=== PATIENT | female | born 1955 | race Caucasian/White ===

== ENCOUNTER 2020-07-08 21:58 | Emergency (ER) | payer OTHER, SELFPAY ==
[~2020-07-08] VITALS: Ht 157.5 cm; Wt 81.6 kg
[~2020-07-08 21:58] MED LIST: GABA400C PO; GLIP5TER PO; LEVO500T98 PO; LISI5TAB18 PO; ONDA4TAB PO; POLY17PD46 PO; PRE.3 PO; SIMV80TA1 PO; TIZA2CAP PO; TRAZ100T77 PO; [UNRECOGNIZED DRUG - CODE] SL
[2020-07-08 22:01] VITALS: BP 116/66
--- NOTE | 2020-07-08 22:02 | NUR ---
BIBA TO ER BED 5
--- NOTE | 2020-07-08 22:24 | NUR ---
65/F BIB SELF COMPLAINING OF SHARP CHEST PAIN 6/10 S/P INGESTION OF RED MEAT AT APPROX 1630/1700. PT SELF MEDICATED WITH DILAUDID AND TYLENOL #3. PT DENIES ANY N/V/D. PT AAOX4, AMBULATORY, ABLE TO MAKE NEEDS KNOWN. PT CHANGED TO GOWN, HOOKED TO MONITORS. SAFETY MEASURES IN PLACE, WILL CONTINUE TO MONITOR. PMH: COPD, HTN, HLYD, DM, GALLGLADDER REMOVAL 06/28 ALLERGY: SHRIMP, PCN, TRAMDOL
[2020-07-08 22:28] VITALS: BP 125/60
--- NOTE | 2020-07-08 23:04 | NUR ---
MOVED TO ER BED 4
[2020-07-09] MEDS ORDERED: MORPHINE SULFATE 2 MG/ML SYR IVP ONE (00:05)
[2020-07-09] MEDS ORDERED: ONDANSETRON 4 MG/2 ML VIAL IVP ONE (00:05)
[2020-07-09] MEDS ORDERED: ASPIRIN 325 MG TAB PO ONE (00:05)
[2020-07-09 00:26] LABS: BASOPHILS # (AUTO) 0.1 K/uL (0.00-0.22); BASOPHILS % (AUTO) 0.6 % (0.0-2.0); EOSINOPHILS # (AUTO) 0.1 K/uL (0-0.4); EOSINOPHILS % (AUTO) 1.1 % (0.0-4.0); HEMOGLOBIN 11.8 g/dL (12.0-16.0); LYMPHOCYTES # (AUTO) 2.2 K/uL (2.5-16.5); MEAN CORPUSCULAR HEMOGLOBIN 32 pg (27-31); MEAN CORPUSCULAR HGB CONC 34 g/dL (33-37); MEAN CORPUSCULAR VOLUME 95.5 fL (80-94); MONOCYTES % (AUTO) 7.8 % (1.7-9.3); NEUTROPHILS # (AUTO) 9.3 K/uL (1.8-7.7); NEUTROPHILS % (AUTO) 73.5 % (42.2-75.2); PLATELET COUNT (AUTO) 463 K/uL (140-450); RED BLOOD CELL COUNT(AUTO) 3.66 MIL/uL (4.20-5.40); RED CELL DISTRIBUTION WIDTH 13.2 % (11.6-13.7); WHITE BLOOD COUNT (AUTO) 12.7 K/uL (4.8-10.8)
--- NOTE | 2020-07-09 00:30 | NUR ---
ATTEMPTED X3 FOR IV ACCESS, UNABLE TO OBTAIN IV ACCESS DUE TO POOR DIDIER CIRCULATION. ERMD MADE AWARE.
[2020-07-09] MEDS ORDERED: HYDROcodone/APAP 5/325 MG 1 TAB TAB PO ONE (00:35)
[2020-07-09 00:40] LABS: ALBUMIN 3.2 g/dL (3.4-5.0); CARBON DIOXIDE 29.2 mmol/L (21-32); POTASSIUM 4.2 mmol/L (3.5-5.1); TOTAL BILIRUBIN 0.8 mg/dL (0.0-1.0)
--- NOTE | 2020-07-09 02:00 | NUR ---
S/W PT ABOUT PLAN OF CARE. PT AGREEABLE TO EKG ONLY AND WANTS TO BE DISCHARGED AFTERWARDS. TOMD MADE AWARE.
--- NOTE | 2020-07-09 02:13 | NUR ---
Patient discharged with v/s stable. Written and verbal after care instructions given and explained. Patient verbalized understanding. Ambulatory with steady gait. All questions addressed prior to discharge. Advised to follow up with PMD.
== END 2020-07-09 02:13 | disposition home or self-care (01) ==
LOC: MED 21:58
DX: R07.89 Other chest pain (principal); R06.02 Shortness of breath; R05 Cough; E11.9 Type 2 diabetes mellitus without complications; I10 Essential (primary) hypertension; J45.909 Unspecified asthma, uncomplicated; Z88.0 Allergy status to penicillin; Z88.5 Allergy status to narcotic agent; Z79.899 Other long term (current) drug therapy; Z85.43 Personal history of malignant neoplasm of ovary; Z79.84 Long term (current) use of oral hypoglycemic drugs
CPT/HCPCS: 36415; 71045; 80053; 84484; 85025; 93005; 99285; J2270; J2405

== ENCOUNTER 2022-09-01 15:21 | Emergency (ER) | payer OTHER ==
[~2022-09-01] VITALS: Ht 162.6 cm; Wt 81.6 kg
[~2022-09-01 15:21] MED LIST changes: +LEVO-481 PO; -LEVO500T98 PO; -TRAZ100T77 PO; +[UNRECOGNIZED DRUG - CODE] PO
[2022-09-01 16:04] VITALS: BP 117/79; PULSE 76; RESP 18; TEMP 98.1; O2SAT 98
[2022-09-01] MEDS ORDERED: KETOROLAC 30 MG/ML VIAL IM ONE (17:20)
[2022-09-01] MEDS ORDERED: NAPR-54 PO (17:28)
--- NOTE | 2022-09-01 17:38 | NUR ---
Patient discharged with v/s stable. Written and verbal after care instructions given and explained. Patient alert, oriented and verbalized understanding of instructions. Wheel Chair Assisted with to home. All questions addressed prior to discharge. ID band removed. Patient advised to follow up with PMD. Rx of NAPROXEN given. Patient educated on indication of medication including possible reaction and side effects. Opportunity to ask questions provided and answered.
--- NOTE | 2022-09-01 17:39 | NUR ---
PER PROVIDER OK TO DC PT AFTER MEDS GIVEN
== END 2022-09-01 17:38 | disposition home or self-care (01) ==
LOC: MED 15:21
DX: M25.561 Pain in right knee (principal); J45.909 Unspecified asthma, uncomplicated; E11.9 Type 2 diabetes mellitus without complications; I10 Essential (primary) hypertension; Z79.4 Long term (current) use of insulin; Z79.899 Other long term (current) drug therapy; Z79.1 Long term (current) use of non-steroidal anti-inflammatories (NSAID); Z88.8 Allergy status to other drugs, medicaments and biological substances; Z85.43 Personal history of malignant neoplasm of ovary
CPT/HCPCS: 96372; 99283; J1885

== ENCOUNTER 2023-11-07 13:15 | Emergency (ER) | payer MEDICARE, OTHER ==
[~2023-11-07] VITALS: Ht 157.5 cm; Wt 78.5 kg
[~2023-11-07 13:15] MED LIST changes: +NAPR-337 PO
[2023-11-07 13:30] VITALS: BP 113/62; PULSE 77; RESP 18; TEMP 98.8; O2SAT 98
[2023-11-07] MEDS ORDERED: METH-1681 PO (14:01)
[2023-11-07] MEDS ORDERED: IBUP-2213 PO (14:01)
[2023-11-07] MEDS: KETOROLAC 30 MG/ML VIAL IM ONE (14:02)
== END 2023-11-07 14:40 | disposition home or self-care (01) ==
LOC: MED 13:15
DX: S16.1XXA Strain of muscle, fascia and tendon at neck level, initial encounter (principal); S46.912A Strain of unspecified muscle, fascia and tendon at shoulder and upper arm level, left arm, initial encounter; S46.911A Strain of unspecified muscle, fascia and tendon at shoulder and upper arm level, right arm, initial encounter; J44.9 Chronic obstructive pulmonary disease, unspecified; E11.9 Type 2 diabetes mellitus without complications; I10 Essential (primary) hypertension; M19.90 Unspecified osteoarthritis, unspecified site; Z90.49 Acquired absence of other specified parts of digestive tract; Z85.43 Personal history of malignant neoplasm of ovary; Z79.899 Other long term (current) drug therapy; Z88.0 Allergy status to penicillin
CPT/HCPCS: 96372; 99283; J1885